=== PATIENT | female | born 1990 | race American Indian/Alaskan Native ===

== ENCOUNTER 2016-09-04 08:20 | Day surgery (SDC) | payer MEDICAID ==
[2016-09-04 09:42] VITALS: BP 101/56
--- NOTE | 2016-09-04 14:00 | Ultrasound Report ---
ULTRASOUND SOFT TISSUE HEAD AND NECK History: Right neck mass. Findings: There are no previous exams for comparison. Initial scan of the neck demonstrates 3 borderline lymph nodes in the right jugular chain measuring less than 1 cm in short axis. Per the patient, these lymph nodes have decreased significantly in size in the past week since starting antibiotic therapy. Given this discussion, the patient decided against ultrasound guided biopsy of these lymph nodes. No suspicious neck mass or bulky adenopathy remains. The thyroid gland is normal. Impression: Right cervical lymph nodes as described above. Biopsy was not performed. See above.
== END 2016-09-04 11:32 | disposition home or self-care (01) ==
LOC: CATHLABREC 08:20 → EDSTATUS 08:30 → CATHLABREC 11:32
PROVIDERS: ATTEND Otolaryngology
DX: R22.1 Localized swelling, mass and lump, neck (principal); Z53.8 Procedure and treatment not carried out for other reasons
CPT/HCPCS: 76536; 81025

== ENCOUNTER 2017-01-08 10:33 | Outpatient (CLI) | payer MEDICAID ==
--- NOTE | 2017-01-08 15:13 | Cat Scan Report ---
CT NECK WITHOUT AND WITH CONTRAST: 01/08/17 10:33:00 CLINICAL: Chronic lymphadenitis. A right ultrasound guided needle biopsy was canceled on 09/04/16 because ultrasound did not demonstrate a mass or suspicious lymph nodes. TECHNIQUE: Volumetric acquisition and 1.25 mm scan reconstructions without contrast and after the uneventful intravenous injection of 100-cc Omnipaque 350. Consent was obtained prior to the administration of the IV contrast. FINDINGS: Normal mucosal structures of the nasopharynx, oropharynx, hypopharynx and larynx. The parapharyngeal spaces are normal. Normal salivary glands. No neck mass. A few prominent jugular chain lymph nodes. The largest is on the right and measures 1.6 cm transverse dimension by 0.9 cm AP dimension of 2.7 cm craniocaudal dimension. A similar lymph node on the left measures 1.2 x 0.8 x 2.2 cm. Shotty bilateral submandibular lymph nodes with the largest on the left measuring 9 mm. No supraclavicular lymphadenopathy. Normal thyroid. Normal vascular structures. The upper lung alfaro are clear. The bones are normal. IMPRESSION: 1. No neck mass. 2. A few prominent cervical lymph nodes with the largest on the right measuring 2.7 x 1.6 x 0.9 cm.
== END 2017-01-08 10:34 | disposition home or self-care (01) ==
LOC: CT 10:33
PROVIDERS: ATTEND Otolaryngology
DX: I88.1 Chronic lymphadenitis, except mesenteric (principal)
CPT/HCPCS: 70492; Q9967

== ENCOUNTER 2019-12-19 09:18 | Emergency (ER) | payer OTHER ==
[2019-12-19 09:41] VITALS: BP 110/67
== END 2019-12-19 10:00 | disposition left against medical advice (07) ==
LOC: ED 09:18
DX: Z04.1 Encounter for examination and observation following transport accident (principal); Z53.21 Procedure and treatment not carried out due to patient leaving prior to being seen by health care provider

== ENCOUNTER 2021-01-03 15:42 | Emergency (ER) | payer OTHER ==
[2021-01-03] MEDS ORDERED: diphenhydrAMINE 50 MG/ML VIAL IV ONE (16:41)
[2021-01-03] MEDS ORDERED: FAMOTIDINE 20 MG/2 ML INJ IV ONE (16:41)
[2021-01-03] MEDS ORDERED: methylPREDNISolone Sod Succinate 125 MG/2 ML INJ IV ONE (16:41)
--- NOTE | 2021-01-03 16:55 | Emergency Department Report ---
ED General Adult HPI - General Chief complaint: Allergic Reaction Stated complaint: allergic rxn Time Seen by Provider: 01/03/21 16:41 Source: patient Mode of arrival: Ambulatory Limitations: No Limitations - History of Present Illness Initial comments: Patient is 30 years old female with a recent diagnosis of tonsillitis for which she received clindamycin. Patient stated that after 6 days from the started clindamycin she started having diffuse lesions with itching all over her body and is getting worse now. Patient stated that she went to another ER a few days ago and diagnosed with allergic reaction she was given prednisone 40mg but is not helping much. Patient denied any difficulty breathing or difficulty swallowing. No oral lesions. - Related Data Home Medications Medication Instructions Recorded Confirmed Last Taken Amoxicillin [Trimox CAP] 500 mg PO DAILY 09/04/16 09/04/16 09/03/16 predniSONE [Prednisone] 20 mg PO DAILY 09/04/16 09/04/16 09/03/16 20 mg Allergies Allergy/AdvReac Type Severity Reaction Status Date / Time clindamycin Allergy Hives Verified 01/03/21 15:48 latex Allergy Rash Verified 02/16/16 10:10 ED Review of Systems ROS: Stated complaint: allergic rxn Other details as noted in HPI Comment: All other systems reviewed and negative Constitutional: denies: chills, fever Respiratory: denies: cough, shortness of breath Cardiovascular: denies: chest pain Gastrointestinal: denies: abdominal pain, nausea, vomiting, diarrhea, constipation, hematemesis, melena, hematochezia Musculoskeletal: denies: back pain Neurological: denies: headache, weakness, numbness, paresthesias, confusion ED Past Medical Hx - Past Medical History Hx Hypertension: No Hx Congestive Heart Failure: No Hx Diabetes: No Hx Deep Vein Thrombosis: No Hx Renal Disease: No Hx Sickle Cell Disease: No Hx Seizures: No Hx Asthma: Yes (11/2015 LAST ATTACK) Hx COPD: No Hx HIV: No - Surgical History Additional Surgical History: TONSILECTOMY - Social History Smoking Status: Current Every Day Smoker Substance Use Type: None, Alcohol - Medications Home Medications: Home Medications Medication Instructions Recorded Confirmed Last Taken Type Amoxicillin [Trimox CAP] 500 mg PO DAILY 09/04/16 09/04/16 09/03/16 History predniSONE [Prednisone] 20 mg PO DAILY 09/04/16 09/04/16 09/03/16 History 20 mg ED Physical Exam - General Limitations: No Limitations General appearance: alert, in no apparent distress - Head Head exam: Present: atraumatic, normocephalic, normal inspection - Eye Eye exam: Present: normal appearance, PERRL - ENT ENT exam: Present: normal exam, normal orophraynx, mucous membranes moist - Neck Neck exam: Present: normal inspection, full ROM. Absent: tenderness, meningismus - Respiratory Respiratory exam: Present: normal lung sounds bilaterally - Cardiovascular Cardiovascular Exam: Present: regular rate, normal rhythm, normal heart sounds - GI/Abdominal GI/Abdominal exam: Present: soft, normal bowel sounds. Absent: distended, tenderness, guarding, rebound, rigid, organomegaly, mass, bruit, pulsatile mass, hernia - Extremities Exam Extremities exam: Present: full ROM, normal capillary refill. Absent: calf tenderness - Back Exam Back exam: Present: full ROM. Absent: CVA tenderness (R), CVA tenderness (L) - Neurological Exam Neurological exam: Present: alert, oriented X3, CN II-XII intact, normal gait, reflexes normal - Psychiatric Psychiatric exam: Present: normal mood - Skin Skin exam: Present: warm, rash, other (Diffuse skin rash with target lesions, suspicious for erythema multiforme) ED Course Vital Signs 01/03/21 01/03/21 01/03/21 15:45 16:00 16:15 Temperature 97.9 F Pulse Rate 90 77 73 Respiratory 14 17 14 Rate Blood Pressure 122/77 121/72 121/72 O2 Sat by Pulse 100 99 99 Oximetry 01/03/21 01/03/21 01/03/21 16:30 16:45 17:01 Temperature Pulse Rate 71 64 73 Respiratory 22 19 24 Rate Blood Pressure 121/72 121/72 118/79 O2 Sat by Pulse 99 100 100 Oximetry ED Medical Decision Making - Medical Decision Making Patient is 30 years old female with a recent diagnosis of tonsillitis for which she received clindamycin. Patient stated that after 6 days from the started clindamycin she started having diffuse lesions with itching all over her body and is getting worse now. Patient stated that she went to another ER a few days ago and diagnosed with allergic reaction she was given prednisone 40mg but is not helping much. Patient denied any difficulty breathing or difficulty swallowing. No oral lesions. Patient received Solu-Medrol, Benadryl and Pepcid. Patient skin lesion looks like erythema multiforme most likely due to either infection or the medication that she took. I advised patient to follow-up with sales secretary in the next 2 to 3 days and to return to the ER if she develop any new symptoms. Patient advised to continue her current prednisone and Benadryl and I added Pepcid to her medication list. Critical care attestation.: If time is entered above; I have spent that time in minutes in the direct care of this critically ill patient, excluding procedure time. ED Disposition Clinical Impression: Acute allergic reaction, Erythema multiforme Disposition: HOME / SELF CARE / HOMELESS Is pt being admited?: No Condition: Stable Instructions: Erythema Multiforme, Allergies, Adult, [id number] Additional Instructions: Please follow-up with sales secretary. I provided you Dr. Jori Paniagua Office number is [phone] [address] [place] [id number] Referrals: PRIMARY CARE, [Primary Care Provider] - 3-5 Days
[2021-01-03 19:09] VITALS: BP 121/74
== END 2021-01-03 20:42 | disposition home or self-care (01) ==
LOC: ED 15:42
DX: T78.40XA Allergy, unspecified, initial encounter (principal); L53.9 Erythematous condition, unspecified; J45.909 Unspecified asthma, uncomplicated; F17.200 Nicotine dependence, unspecified, uncomplicated; Z90.89 Acquired absence of other organs; Z72.89 Other problems related to lifestyle; Z88.1 Allergy status to other antibiotic agents; Z91.040 Latex allergy status; Z79.899 Other long term (current) drug therapy; X58.XXXA Exposure to other specified factors, initial encounter
CPT/HCPCS: 96374; 96375; 99282; J1200; J2930; J3490

== ENCOUNTER 2021-02-13 18:32 | Emergency (ER) | payer OTHER | END 2021-02-14 04:30 | disposition left against medical advice (07) | LOC: ED 18:32 | DX: J04.10 Acute tracheitis without obstruction (principal); Z53.21 Procedure and treatment not carried out due to patient leaving prior to being seen by health care provider ==